=== PATIENT | female | born 1990 | race Caucasian/White ===

== ENCOUNTER 2019-11-10 12:56 | Emergency (ER) | payer BC, SELFPAY ==
[2019-11-10 13:16] VITALS: BP 106/70; PULSE 71; RESP 20; TEMP 36.9; O2SAT 99; BMI 33.5
--- NOTE | 2019-11-10 13:30 | HMH.EDUTC ---
[facility] [place] Disposition Clinical Impression: Boil Cellulitis Qualifiers: Site of cellulitis: extremity Site of cellulitis of extremity: lower extremity Laterality: right Qualified Code(s): L03.115 - Cellulitis of right lower limb Disposition: Home, Self-Care Condition on Discharge: Good Instructions: Cellulitis Additional Instructions: Keep the affected area clean and dry. Follow up with your regular doctor. There will be a culture result finished in 3 days, but f/u sooner than that if its getting worse. Take the antibiotics as directed and apply the topical antibiotics as directed. Apply warm wet compresses to the affected area three or four times per day. GO TO THE ER FOR ANY WORSENING SYMPTOMS Prescriptions: Mupirocin [Bactroban 2% Ointment 22gm tube] 1 applicatio TP TID 7 Days #1 tube Transmission Status: Received by [id number] Clotrimazole 1 applicatio TP BID 14 Days #1 tube Transmission Status: Received by [id number] Referrals: PCP,No [Primary Care Provider] - Time of Disposition: 13:34 Medical Decision Making - Medical Records Medical records reviewed: No: I reviewed the patient's medical records. - Obdulio Inquiry Pt receiving controlled substance: No Vital Signs: 11/10/19 13:16 11/10/19 13:58 Temperature 98.4 F 98.4 F Temperature Source Oral Pulse Rate 71 Pulse Rate [Right Brachial] 71 Respiratory Rate 20 20 Blood Pressure 106/70 L Blood Pressure [Right Arm] 106/70 L Blood Pressure Mean [Right Arm] 82 Blood Pressure Source [Right Arm] Automatic Cuff Blood Pressure Position [Right Arm] Sitting 02 Sat by Pulse Oximetry 99 Oxygen Delivery Method Room Air Orders (Tests/Meds): ORDERS Category Date Time Status Wound Culture and Gram Stain Stat Micro 11/10/19 13:50 Results [facility] [place] HPI - General Stated complaint: burning rash on leg Time Seen by Provider: 11/10/19 13:20 Mode of Arrival: Ambulatory Source of Information: Patient Limitations: No Limitations Description of Symptoms (Recalled from Triage Doc. by RN): PATIENT C/O CIRCULAR, DRY, RED AREA TO TOP OF RIGHT THIGH X 5 DAYS, STATES IT IS ITCHY AND PAINFUL HEENT Symptoms (Recalled from RN notes): No Resp Symptoms (Recalled from RN notes): No Skin Symptoms (Recalled from RN notes): Yes MS Symptoms (Recalled from RN notes): No Functional Status (Recalled from RN notes): WNL - History of Present Illness Provider Complaint: She c/o having a red area on the top of her right thigh. It has been present for the past 2 days. - Related Data Home Medications Medication Instructions Recorded Confirmed Topiramate [Topamax 100mg tablet] 100 mg PO BIDP PRN 11/10/19 11/10/19 Previous Rx's Medication Instructions Recorded Clotrimazole 1 applicatio TP BID 14 Days #1 tube 11/10/19 Mupirocin [Bactroban 2% Ointment 1 applicatio TP TID 7 Days #1 tube 11/10/19 22gm tube] Allergies Allergy/AdvReac Type Severity Reaction Status Date / Time Penicillins Allergy Verified 11/10/19 13:19 - Worker's Comp Is this a Worker's Comp case?: No [facility] History - Hepatitis A Screen Drug use history?: No High risk sexual behaviors?: No History of sexually transmitted infection?: No Currently employed?: No Childcare worker?: No Do you have indoor plumbing?: Yes Do you have electricity?: Yes Attestation statement:: This patient has been screened for Hepatitis A risk factors. I have reviewed the patient's past medical history: Yes Laterality Cases: Bilateral: Tonsillectomy - Social History Alcohol Intake: never Occupational Status: other ROS Obtained: Yes All systems reviewed & no additional complaints - Constitutional Constitutional: Denies chills, Denies fever(s) - Eyes Eyes: Denies eye discharge - ENT Ears, Nose, Mouth, and Throat: Denies dizziness, Denies otalgia, Denies sore throat - Cardiovascular Cardiovascular: Denies chest pain - Integumentary/Breasts Sk
[2019-11-10 13:58] VITALS: BP 106/70; PULSE 71; RESP 20; TEMP 36.9; O2SAT 99
== END 2019-11-10 14:00 | disposition home or self-care (01) ==
PROVIDERS: Emergency Provider Nurse Practitioner Family
DX: L03.115 Cellulitis of right lower limb (principal)
CPT/HCPCS: 87070; 87077; 87186; 87205; 99201

== ENCOUNTER 2021-06-14 18:47 | Emergency (ER) | payer BC, SELFPAY ==
[2021-06-14 19:40] VITALS: BP 131/86; PULSE 119; RESP 18; TEMP 37.8; O2SAT 98; BMI 38.2
--- NOTE | 2021-06-14 20:13 | HMH.EDUTC ---
[facility] [place] Clinical Impression: Nausea & vomiting Qualifiers: Vomiting type: unspecified Qualified Code(s): R11.2 - Nausea with vomiting, unspecified Diarrhea Qualifiers: Diarrhea type: unspecified type Qualified Code(s): R19.7 - Diarrhea, unspecified Disposition: Home, Self-Care Condition on Discharge: Good Instructions: Nausea and Vomiting-Adult, Diarrhea Additional Instructions: Monitor temperature. Seek treatment if fever develops. Follow-up immediately if new or worse symptoms worsen or no noticeable improvement over 48 hours. Increase fluids such as water, Gatorade, Powerade, juice or Pedialyte with limited formula/dietary in children No food is okay as long as you are drinking. Once ready to eat start bland such as bananas, rice, applesauce, toast. Contagious until no diarrhea, vomiting, fever times 48 hours without medication Avoid antidiarrheals unless told otherwise. Best to let the virus run its course. Follow-up immediately for new or worsening symptoms or no noticeable improvement over the next 48 hours. Prescriptions: Ondansetron [Zofran 4mg ODT] 4 mg PO TIDP PRN 4 Days #12 tab PRN Reason: Nausea Transmission Status: Pending to [facility] Referrals: Provider,Referral, [Primary Care Provider] - Time of Disposition: 20:22 Medical Decision Making - Obdulio Inquiry Pt receiving controlled substance: No Vital Signs: 06/14/21 19:40 Temperature 100.0 F H Temperature Source Oral Pulse Rate [Right Brachial] 119 H Respiratory Rate 18 Blood Pressure [Right Arm] 131/86 Blood Pressure Mean [Right Arm] 101 Blood Pressure Source [Right Arm] Automatic Cuff 02 Sat by Pulse Oximetry 98 Oxygen Delivery Method Room Air - Lab Data Lab Results 06/14/21 19:51: Influenza Type A Ag Negative, Influenza Type B Ag Negative [facility] [place] HPI - General Chief complaint: Urgent Treatment Center Stated complaint: V&D Time Seen by Provider: 06/14/21 20:13 Mode of Arrival: Ambulatory Source of Information: Patient Limitations: No Limitations Description of Symptoms (Recalled from Triage Doc. by RN): PATIENT C/O VOMITING, NAUSEA, DIARRHEA, HEADACHE AND BODY ACHES SINCE THIS MORNING HEENT Symptoms (Recalled from RN notes): No Resp Symptoms (Recalled from RN notes): No Skin Symptoms (Recalled from RN notes): No MS Symptoms (Recalled from RN notes): No Functional Status (Recalled from RN notes): WNL - History of Present Illness Provider Complaint: 30 yr old female presents for headache,nausea/vomiting/diarrhea and fever that started today. is - Related Data Home Medications Medication Instructions Recorded Confirmed Topiramate [Topamax 100mg tablet] 100 mg PO BIDP PRN 11/10/19 11/10/19 Previous Rx's Medication Instructions Recorded Clotrimazole 1 applicatio TP BID 14 Days #1 tube 11/10/19 Mupirocin [Bactroban 2% Ointment 1 applicatio TP TID 7 Days #1 tube 11/10/19 22gm tube] Minocycline HCl [Minocycline HCl 100 mg PO BID 7 Days #14 tab 11/16/19 100mg Tab*] Ondansetron [Zofran 4mg ODT] 4 mg PO TIDP PRN 4 Days #12 tab 06/14/21 Allergies Allergy/AdvReac Type Severity Reaction Status Date / Time Penicillins Allergy Verified 11/10/19 13:19 - Worker's Comp Is this a Worker's Comp case?: No [facility] History - Hepatitis A Screen Drug use history?: No High risk sexual behaviors?: No History of sexually transmitted infection?: No Currently employed?: No Childcare worker?: No Do you have indoor plumbing?: Yes Do you have electricity?: Yes Attestation statement:: This patient has been screened for Hepatitis A risk factors. I have reviewed the patient's past medical history: Yes Laterality Cases: Bilateral: Tonsillectomy - Social History Alcohol Intake: never Occupational Status: other ROS Obtained: Yes Systems reviewed as appropriate & no additional complaints - Constitutional Constitutional: Reports system reviewed and no additional comp
[2021-06-14 20:14] LABS: UTC Influenza A Antigen Negative (Negative)
[2021-06-14 20:15] LABS: UTC Influenza B Antigen Negative (Negative)
[2021-06-14 20:28] VITALS: BP 131/86; PULSE 119; RESP 18; TEMP 37.8; O2SAT 98
[2021-06-14 20:32] LABS: Adenovirus,PCR Not Detected (NotDetected); Bordetella Pertussis Not Detected (NotDetected); Chlamydophila Pneumoniae, PCR Not Detected (NotDetected); Coronavirus 19, PCR Not Detected (NotDetected); Coronavirus 229E Not Detected (NotDetected); Coronavirus NL63 Not Detected (NotDetected); Coronavirus OC43 Not Detected (NotDetected); Coronovirus HKU1,PCR Not Detected (NotDetected); Human Metapneumovirus Not Detected (NotDetected); Influenza A, PCR Not Detected (NotDetected); Influenza AH1, 2009 Not Detected (NotDetected); Influenza AH1, PCR Not Detected (NotDetected); Influenza AH3,PCR Not Detected (NotDetected); Influenza B, PCR Not Detected (NotDetected); Mycoplasma Pneumoniae, PCR Not Detected (NotDetected); Parainfluenza 1, PCR Not Detected (NotDetected); Parainfluenza 2, PCR Not Detected (NotDetected); Parainfluenza 3, PCR Not Detected (NotDetected); Parainfluenza 4, PCR Not Detected (NotDetected); Respiratory Syncytial Virus Not Detected (NotDetected); Rhinovirus/Enterovirus Not Detected (NotDetected)
== END 2021-06-14 20:33 | disposition home or self-care (01) ==
PROVIDERS: Emergency Provider Nurse Practitioner Family
DX: R11.2 Nausea with vomiting, unspecified (principal); R19.7 Diarrhea, unspecified; M79.10 Myalgia, unspecified site; R51.9 Headache, unspecified; Z20.822 Contact with and (suspected) exposure to COVID-19; Z88.0 Allergy status to penicillin
CPT/HCPCS: 87581; 87632; 87798; 87804; 99213; C9803; G0463; U0003; U0005